=== PATIENT | female | born 1975 | race Caucasian/White ===

== ENCOUNTER 2018-01-24 17:10 | Emergency (ER) | payer OTHER ==
[~2018-01-24] VITALS: Ht 170.2 cm; Wt 102.1 kg
[2018-01-24 17:37] VITALS: BP 145/84
--- NOTE | 2018-01-24 17:50 | NUR ---
PATIENT PRESENTS TO ED WITH PT C/O BILATERAL BREAST TENDERNESS X TODAY---ADDS SHE HAD FELT A LUMP TO BOTH BREAST WHICH MAY HAVE EXPLODED BY NOW---PT IS UNABLE TO VERBALIZE IF ANY COLOR CHANGES NOTED OR DISCHARGE----PT STATING SHE DOES NOT TOUCH HERSELF , CONTRIBUTING THAT MAY BE A REASON FOR THE PAIN.----MD NOTIFIED DENIES INJURY/TRAUMA . DENIES N/V/D; SKIN IS PINK/WARM/DRY; AAOX4 WITH EVEN AND STEADY GAIT; LUNGS CLEAR BL; HR EVEN AND REGULAR; PT DENIES ANY FEVER, CP, SOB, OR COUGH AT THIS TIME; PATIENT STATES PAIN OF 5/10 AT THIS TIME; VSS; PATIENT POSITIONED FOR COMFORT; HOB ELEVATED; BEDRAILS UP X2; BED DOWN. ER MD MADE AWARE OF PT STATUS.
[2018-01-24 18:29] VITALS: BP 145/84
== END 2018-01-24 18:30 | disposition home or self-care (01) ==
LOC: MED 17:10
DX: N64.4 Mastodynia (principal)
CPT/HCPCS: 99282

== ENCOUNTER 2019-02-04 20:16 | Emergency (ER) | payer SELFPAY ==
[~2019-02-04] VITALS: Ht 175.3 cm; Wt 99.8 kg
[2019-02-04 20:24] VITALS: BP 122/59
--- NOTE | 2019-02-04 20:54 | NUR ---
PT TO ED VIA EMS FOR C/O HEADACHE. PER PT "MY HEAD HURTS AND I FEEL LIKE THE DISEASES ARE IN MY BODY" PT IS UNABLE TO RECALL MEDICAL HISTORY BUT REPORTS TAKING RISPERDAL. NO NEURO DEFECITS NOTED. PT PLACED INTO BED, PENDING MD ROLAND.
[2019-02-04 21:04] LABS: BASOPHILS % (AUTO) 0.1 % (0.0-2.0); EOSINOPHILS # (AUTO) 0.1 K/uL (0-0.4); HEMATOCRIT 34.4 % (36-48); HEMOGLOBIN 11.4 g/dL (12.0-16.0); LYMPHOCYTES % (AUTO) 26.9 % (20.5-51.1); MEAN CORPUSCULAR HEMOGLOBIN 29 pg (27-31); MEAN CORPUSCULAR HGB CONC 33 g/dL (33-37); MEAN CORPUSCULAR VOLUME 85.8 fL (80-94); MONOCYTES # (AUTO) 0.5 K/uL (0.8-1.0); MONOCYTES % (AUTO) 6.8 % (1.7-9.3); NEUTROPHILS # (AUTO) 4.7 K/uL (1.8-7.7); NEUTROPHILS % (AUTO) 64.2 % (42.2-75.2); PLATELET COUNT (AUTO) 302 K/uL (140-450); RED CELL DISTRIBUTION WIDTH 14.7 % (11.6-13.7); WHITE BLOOD COUNT (AUTO) 7.3 K/uL (4.8-10.8)
[2019-02-04 21:13] LABS: ANION GAP 7.9 (8-16); CARBON DIOXIDE 29.6 mmol/L (21-32); CHLORIDE 104 mmol/L (98-107); CREATININE 0.9 mg/dL (0.6-1.3); GFR ARICAN-AMERICAN 88 mL/min (>90); GLUCOSE 110 mg/dL (74-106); POTASSIUM 3.5 mmol/L (3.5-5.1); SODIUM SERUM 138 mmol/L (136-145); UREA NITROGEN, BLOOD 10 mg/dL (7-18)
[2019-02-04 21:19] LABS: ALBUMIN 3.3 g/dL (3.4-5.0); ASPARTATE AMINOTRANSFERASE 11 U/L (15-37); TOTAL BILIRUBIN 0.3 mg/dL (0.0-1.0)
[2019-02-04 21:26] LABS: BILIRUBIN,URINE NEGATIVE (NEGATIVE); BLOOD, URINE TRACE-I (NEGATIVE); COLOR,URINE YELLOW (YELLOW); LEUKOCYTE ESTERASE ,URINE 2+ (NEGATIVE); NITRITE, URINE NEGATIVE (NEGATIVE); PH,URINE 5.5 (5.0-9.0); UGLUCOSE NEGATIVE (NEGATIVE)
[2019-02-04 21:34] LABS: BARBITURATE, URINE NEG. ng/ml (NEG <=200); BENZODIAZEPINE, URINE NEG. ng/mL (NEG <=200); CANNABINOID, URINE NEG. ng/mL (NEG <=50); COCAINE, URINE NEG. ng/mL (NEG <=300); OPIATE, URINE NEG. ng/mL (NEG <=2000); PHENCYCLIDINE SCREEN,URINE NEG. ng/mL (NEG <=25)
[2019-02-04 21:37] LABS: APPEARANCE,URINE HAZY (CLEAR)
[2019-02-04 21:45] LABS: RBC,URINE 0-5 /HPF (0-5)
--- NOTE | 2019-02-04 21:50 | NUR ---
PT REFUSING TO LEAVE FACILITY. SECURITY CALLED TO BEDSIDE.
--- NOTE | 2019-02-04 22:02 | NUR ---
SECURITY AT BEDSIDE.
--- NOTE | 2019-02-04 22:04 | NUR ---
PT ESCORTED TO LOBBY WITH SECURITY.
[2019-02-04 22:05] VITALS: BP 114/61
--- NOTE | 2019-02-04 22:05 | NUR ---
PT PROVIDED WITH HOMELESS PACKET RESOURCES AND OFFERED BUS PASS. PT REFUSED BUS PASS.
--- NOTE | 2019-02-04 22:05 | NUR ---
Patient discharged with v/s stable. Written and verbal after care instructions given and explained. Patient verbalized understanding. Ambulatory with steady gait with information security director. All questions addressed prior to discharge. Advised to follow up with PMD.
== END 2019-02-04 22:05 | disposition home or self-care (01) ==
LOC: MED 20:16
DX: R44.0 Auditory hallucinations (principal); R51 Headache; R06.02 Shortness of breath; M79.89 Other specified soft tissue disorders; R00.2 Palpitations; E11.9 Type 2 diabetes mellitus without complications; F17.210 Nicotine dependence, cigarettes, uncomplicated; Z88.0 Allergy status to penicillin; Z88.8 Allergy status to other drugs, medicaments and biological substances; Z71.6 Tobacco abuse counseling; Z59.0 Homelessness
CPT/HCPCS: 36415; 80053; 80305; 81001; 81025; 85025; 87086; 93005; 99284; G0482

== ENCOUNTER 2019-04-08 18:46 | Emergency (ER) | payer OTHER ==
[~2019-04-08] VITALS: Ht 170.2 cm; Wt 103.5 kg
[2019-04-08 19:00] VITALS: BP 145/74
--- NOTE | 2019-04-08 19:00 | NUR ---
called pt. pt requests that she finish filling out her paperwork before being triaged.
--- NOTE | 2019-04-08 19:18 | NUR ---
PT TO ED WITH C/O LEFT TOE PAIN X 2 DAYS. DENIES INJURY OR TRAUMA. NO OBVIOUS DEFORMITY OR SWELLING NOTED. PT PLACED IN BED, PENDING MD ROLAND.
--- NOTE | 2019-04-08 19:26 | NUR ---
Dr. Drummond examining patient.
--- NOTE | 2019-04-08 19:44 | NUR ---
X-Ray at bedside.
--- NOTE | 2019-04-08 20:11 | NUR ---
SURG SHOE PLACED ON PTS LEFT FOOT. PTS PMSC WNL
[2019-04-08 20:15] VITALS: BP 145/74
--- NOTE | 2019-04-08 20:40 | NUR ---
Patient discharged with v/s stable. Written and verbal after care instructions given and explained. Patient alert, oriented and verbalized understanding of instructions. Ambulatory with steady gait. All questions addressed prior to discharge. ID band removed. Patient advised to follow up with PMD. Rx of MOTRIN given. Patient educated on indication of medication including possible reaction and side effects. Opportunity to ask questions provided and answered. Pt provided with meal upon d/c. Denies need for housing placement.
--- NOTE | 2019-04-10 09:38 | NUR ---
no working number provided to call back
== END 2019-04-08 20:40 | disposition home or self-care (01) ==
LOC: MED 18:46
DX: M79.675 Pain in left toe(s) (principal); E11.9 Type 2 diabetes mellitus without complications; Z88.0 Allergy status to penicillin; Z88.8 Allergy status to other drugs, medicaments and biological substances
CPT/HCPCS: 29125; 73660; 99283; Q0092

== ENCOUNTER 2019-04-17 23:55 | Emergency (ER) | payer OTHER ==
[~2019-04-17] VITALS: Ht 167.6 cm; Wt 88.5 kg
[2019-04-18 00:03] VITALS: BP 136/91
--- NOTE | 2019-04-18 00:03 | NUR ---
PT AMBULATED TO BED 11.
[2019-04-18] MEDS ORDERED: KETOROLAC 60 MG/2 ML VIAL IM ONE (00:45)
--- NOTE | 2019-04-18 00:48 | NUR ---
Dr. Devi examining patient.
--- NOTE | 2019-04-18 00:48 | NUR ---
PT CAME TO ER C/O OF THICKENED SKIN ON LEFT FOOT, FIFTH DIGIT. SKIN IS INTACT. PAIN LEVEL 10/10 SHARP, PAIN COMES AND GOES. ALLERGIES: PENICILLINS AND ZIPRASIDONE. MED HX: DENIES. SAFETY MEASURES IN PLACE. ERMD AT BEDSIDE.
--- NOTE | 2019-04-18 01:16 | NUR ---
Patient discharged with v/s stable. Written and verbal after care instructions given and explained. Patient verbalized understanding. Recommended pt to wear shoes with a wider toe. Homeless packet provided for pt. Ambulatory with steady gait. All questions addressed prior to discharge. Advised to follow up with PMD.
[2019-04-18 01:17] VITALS: BP 136/91
== END 2019-04-18 01:16 | disposition home or self-care (01) ==
LOC: MED 23:55
DX: M79.675 Pain in left toe(s) (principal); E11.9 Type 2 diabetes mellitus without complications; Z88.0 Allergy status to penicillin; Z88.8 Allergy status to other drugs, medicaments and biological substances
CPT/HCPCS: 96372; 99283; J1885

== ENCOUNTER 2019-04-21 17:39 | Emergency (ER) | payer OTHER ==
[~2019-04-21] VITALS: Ht 170.2 cm; Wt 106.1 kg
[2019-04-21 17:52] VITALS: BP 139/58
--- NOTE | 2019-04-21 17:57 | NUR ---
WAIT AT LOBBY
--- NOTE | 2019-04-21 19:13 | NUR ---
PT TO ER BED 12
--- NOTE | 2019-04-21 19:33 | NUR ---
C/O LEFT 5TH TOE PAIN X 1 WEEK. SITE IS BRUISED. PALPABLE PEDAL PULSE. CAP REFILL <3 SECONDS. PATIENT STATES HER SHOES ARE VERY UNCOMFORTABLE AND SHE IS REQUESTING NEW SHOES TO WALK IN. VSS. AA0X4. BED IS DOWN, LOCKED, BED RAIL X 1, ERMD TO SEE PT. MED HX: HIGH CHOLESTEROL
--- NOTE | 2019-04-21 19:37 | NUR ---
CALLED SECURITY FOR SIZE 8 SHOES
--- NOTE | 2019-04-21 19:47 | NUR ---
SECURITY BROUGHT AND GAVE PT SHOES
--- NOTE | 2019-04-21 20:01 | NUR ---
PATIENT LOOKING THROUGH HOMELESS RESOURCE PACKET, GAVE PT PHONE, [facility]
--- NOTE | 2019-04-21 20:41 | NUR ---
PT SLEEPING IN BED
--- NOTE | 2019-04-21 21:02 | NUR ---
REPORT GIVEN TO JEAN CARLOS ROD
--- NOTE | 2019-04-21 21:05 | NUR ---
DR LOMBARDI AT BEDSIDE
--- NOTE | 2019-04-21 21:55 | NUR ---
XRAY AT BEDSIDE.
[2019-04-21 22:55] VITALS: BP 140/60
--- NOTE | 2019-04-21 22:55 | NUR ---
Patient discharged with v/s stable. Written and verbal after care instructions given and explained. Patient verbalized understanding. Ambulatory with steady gait. All questions addressed prior to discharge. Advised to follow up with PMD. PT PROVIED WITH MEAL, BUS PASS, AND COMMUNITY RESOURCES.
== END 2019-04-21 22:55 | disposition home or self-care (01) ==
LOC: MED 17:39
DX: M79.605 Pain in left leg (principal); E11.9 Type 2 diabetes mellitus without complications; Z88.0 Allergy status to penicillin; Z88.8 Allergy status to other drugs, medicaments and biological substances
CPT/HCPCS: 73660; 81002; 81025; 99283; Q0092

== ENCOUNTER 2019-05-20 06:07 | Emergency (ER) | payer OTHER ==
[~2019-05-20] VITALS: Ht 170.2 cm; Wt 103.0 kg
--- NOTE | 2019-05-20 06:27 | NUR ---
PT TAKEN TO BED 3
[2019-05-20 06:36] VITALS: BP 137/61
--- NOTE | 2019-05-20 06:40 | NUR ---
ARMIDA ALVARES EVALUATING PATIENT.
[2019-05-20] MEDS ORDERED: KETOROLAC 30 MG/ML VIAL IM ONE (06:45)
--- NOTE | 2019-05-20 06:46 | NUR ---
43 Y/O FEMALE C/O PAIN ON THIRD AND FIFTH TOE ON LEFT FOOT AND THE SOLE THE RIGHT FOOT SINCE X2 DAYS AGO. PAIN IS A 4/10 ACUTE PAIN. PATIENT STATES, "IT HURTS WHEN I WALK". PATIENT IS A/OX4 AND FOLLOWS COMMANDS. PATIENT IS COOPERATIVE AND CALM. BREATH SOUNDS ARE CLEAR BILATERALLY. 1CM BLISTER NOTED ON THE RIGHT SOLE. FACIAL GRIMACING IS NOTED WHEN PATIENT MOVES HER LEFT FOOT (THIRD AND FIFTH TOES). ER MD MADE AWARE OF STATUS. SIDE RAILSX1. ALLERGIES: PENICILLIN PMH: HIGH CHOLESTEROL RX:DENIES
--- NOTE | 2019-05-20 06:58 | NUR ---
X-RAY AT BEDSIDE.
--- NOTE | 2019-05-20 06:58 | NUR ---
Mariel godoy in [facility] - 05/20/19 at 0705 by CLAUDIO ULTRASOUND AT BEDSIDE.
--- NOTE | 2019-05-20 07:05 | NUR ---
Pt report given to VIOLA VEGA. Transfer of care at this time.
--- NOTE | 2019-05-20 07:06 | NUR ---
RECEIVED REPORT FROM SOBEIDA ROD.
--- NOTE | 2019-05-20 07:33 | NUR ---
MED HX: HIGH CHOLESTEROL & SCHIZOPHRENIA MED : ALIYA MCNAMARA
--- NOTE | 2019-05-20 07:35 | NUR ---
PROVIDED FOOD FOR PT AT THIS TIME.
[2019-05-20 07:59] VITALS: BP 126/63
== END 2019-05-20 07:59 | disposition home or self-care (01) ==
LOC: MED 06:07
DX: S93.602A Unspecified sprain of left foot, initial encounter (principal); E11.9 Type 2 diabetes mellitus without complications; F17.210 Nicotine dependence, cigarettes, uncomplicated; Z98.890 Other specified postprocedural states; Z88.0 Allergy status to penicillin; Z88.8 Allergy status to other drugs, medicaments and biological substances; Y93.89 Activity, other specified; Y99.8 Other external cause status
CPT/HCPCS: 73630; 96372; 99283; J1885; Q0092

== ENCOUNTER 2019-05-29 04:40 | Emergency (ER) | payer OTHER ==
[~2019-05-29] VITALS: Ht 160 cm; Wt 117.9 kg
[2019-05-29 04:40] VITALS: BP 100/52
[2019-05-29 04:58] VITALS: BP 100/52
== END 2019-05-29 05:35 | disposition home or self-care (01) ==
LOC: MED 04:40
DX: R10.10 Upper abdominal pain, unspecified (principal); F25.9 Schizoaffective disorder, unspecified; E11.9 Type 2 diabetes mellitus without complications; E78.00 Pure hypercholesterolemia, unspecified; Z88.0 Allergy status to penicillin; Z88.8 Allergy status to other drugs, medicaments and biological substances
CPT/HCPCS: 81002; 81025; 99283

== ENCOUNTER 2019-08-27 02:03 | Emergency (ER) | payer OTHER ==
[~2019-08-27] VITALS: Ht 170.2 cm; Wt 105.2 kg
[2019-08-27 02:03] VITALS: BP 100/34
--- NOTE | 2019-08-27 02:03 | NUR ---
PT BIBA BLS. TAKEN TO BED 9
--- NOTE | 2019-08-27 02:18 | NUR ---
44 Y/O FEMALE BIBA. PT HOMELESS, CURRENTLY LIVING IN [facility]. PRESENTS TO ED, C/O NEAR SYNCOPAL EPISODE. PT STATES HAVING DECREASED FOOD INTAKE FOR THE PAST WEEK. PT DENIES ANY HEAD TRAUMA. C/O DIZZINESS. UNSTEADY GAIT. ERMD AWARE. WILL CONTINUE TO MONITOR.
[2019-08-27] MEDS ORDERED: NACL 0.9% 1,000 ML IV ONE (02:35)
[2019-08-27 03:00] LABS: BASOPHILS % (AUTO) 0.3 % (0.0-2.0); EOSINOPHILS # (AUTO) 0.1 K/uL (0-0.4); HEMATOCRIT 40.7 % (36-48); HEMOGLOBIN 13.5 g/dL (12.0-16.0); LYMPHOCYTES # (AUTO) 1.5 K/uL (2.5-16.5); LYMPHOCYTES % (AUTO) 14.8 % (20.5-51.1); MEAN CORPUSCULAR HEMOGLOBIN 30 pg (27-31); MEAN CORPUSCULAR HGB CONC 33 g/dL (33-37); MEAN CORPUSCULAR VOLUME 89.5 fL (80-94); MONOCYTES # (AUTO) 0.4 K/uL (0.8-1.0); MONOCYTES % (AUTO) 4.2 % (1.7-9.3); NEUTROPHILS # (AUTO) 8.1 K/uL (1.8-7.7); NEUTROPHILS % (AUTO) 79.7 % (42.2-75.2); PLATELET COUNT (AUTO) 323 K/uL (140-450); RED BLOOD CELL COUNT(AUTO) 4.55 MIL/uL (4.20-5.40); RED CELL DISTRIBUTION WIDTH 14.7 % (11.6-13.7); WHITE BLOOD COUNT (AUTO) 10.1 K/uL (4.8-10.8)
[2019-08-27 03:22] LABS: POTASSIUM 3.7 mmol/L (3.5-5.1)
[2019-08-27 03:23] LABS: ANION GAP 11.9 (8-16); CARBON DIOXIDE 27.8 mmol/L (21-32); CREATININE 0.9 mg/dL (0.6-1.3)
[2019-08-27 04:50] VITALS: BP 100/34
--- NOTE | 2019-08-27 04:50 | NUR ---
PT DISCHARGED WITH PAPERWORK. EDUCATED PT REGARDING D/C DIAGNOSIS AND INSTRUCTIONS. PT VERBALIZED UNDERSTANDING OF TEACHING. TOLD PT TO FOLLOW UP WITH PCP AND WHEN TO RETURN TO ED. PT AT STABLE CONDITION. ALL QUESTIONS ANSWERED.
== END 2019-08-27 04:50 | disposition home or self-care (01) ==
LOC: MED 02:03
DX: R42 Dizziness and giddiness (principal); E11.9 Type 2 diabetes mellitus without complications; F20.9 Schizophrenia, unspecified; F17.200 Nicotine dependence, unspecified, uncomplicated; Z88.0 Allergy status to penicillin; Z88.8 Allergy status to other drugs, medicaments and biological substances
CPT/HCPCS: 36415; 70450; 80048; 81025; 85025; 93005; 96360; 96361; 99284

== ENCOUNTER 2020-07-18 17:46 | Emergency (ER) | payer OTHER, MEDICAID ==
[~2020-07-18] VITALS: Ht 170.2 cm; Wt 102.1 kg
[2020-07-18 17:56] VITALS: BP 118/98
--- NOTE | 2020-07-18 18:32 | NUR ---
45 Y/O FEMALE NI, FROM HOME PRESENTS TO ED C/C RIGHT FOOT PAIN AND COUGH X2 MONTHS. PT STES THE VOICES TOLD HER TO COME IN TO ED. DENIES TAKING ANY OTC MEDS. ON ABILIFY FOR BIPOLAR. EMT REPORTED TEMP 101.4, ON ADMISSION TEMP TAKEN 99.0. PT STATES HER COGH IS PRODUCTIVE WITH CLEAR SPUTUM.LUNGS CLEAR ON AUSCULTATION, NO SOB, NO SIGHNS OF RESP DISTRESS NOTED. BOTTOM OF RIGHT FOOT IS SWOLLEN AND PAINFUL TO TOUCH. NO REDNESS NOTED, DENIES TRAUMA TO FOOT, STATES SHE IS UNABLE TO AMBULATE DUE TO PAIN. PT POSITIONED FOR COMFORT, BED LOCKED AND IN LOWEST POSITION. PMH: BIPOLAR, HYPERLIPIDEMIA ALLERGIES: PENICILLINS, ZIPRASIDONE
[2020-07-18] MEDS ORDERED: OLANZapine 5 MG TAB PO STA (19:13)
--- NOTE | 2020-07-18 19:16 | NUR ---
PT STABLE AT THIS TIME. REPORT GIVEN TO BRETT ROD FOR CONTINUITY OF CARE.
[2020-07-18 20:47] VITALS: BP 118/98
--- NOTE | 2020-07-18 20:54 | NUR ---
Patient discharged with v/s stable. Written and verbal after care instructions given and explained. Patient verbalized understanding. Ambulatory with steady gait. All questions addressed prior to discharge. Advised to follow up with PMD.
--- NOTE | 2020-07-21 15:47 | NUR ---
Negative covid result received from lab
== END 2020-07-18 20:54 | disposition home or self-care (01) ==
LOC: MED 17:46
DX: M79.671 Pain in right foot (principal); F29 Unspecified psychosis not due to a substance or known physiological condition; Z20.828 Contact with and (suspected) exposure to other viral communicable diseases
CPT/HCPCS: 99283; U0003

== ENCOUNTER 2024-03-09 12:20 | Emergency (ER) | payer OTHER ==
[~2024-03-09] VITALS: Ht 170.2 cm; Wt 114.3 kg
[2024-03-09 12:30] VITALS: BP 107/53; PULSE 74; RESP 18; TEMP 98.1; O2SAT 100
[2024-03-09] MEDS ORDERED: LIDOCAINE 5% 1 EA PATCH TP ONE (15:00)
[2024-03-09] MEDS: LIDOCAINE MPF 1% 10 MG/ML VIAL INJ ONE (15:52)
[2024-03-09] MEDS ORDERED: BACI-418 TP (16:01)
[2024-03-09] MEDS ORDERED: ACET-2619 PO (16:01)
[2024-03-09] MEDS: ACETAMINOPHEN EXTRA STRENGTH 500 MG TAB PO ONE (16:14)
[2024-03-09] MEDS: BACITRACIN OINT 500 UNITS/GM PKT TP ONE (16:14)
[2024-03-09 16:20] VITALS: BP 110/54; PULSE 70; RESP 16; TEMP 98; O2SAT 98
== END 2024-03-09 16:20 | disposition home or self-care (01) ==
LOC: MED 12:20
DX: M79.81 Nontraumatic hematoma of soft tissue (principal); J45.909 Unspecified asthma, uncomplicated; Z98.890 Other specified postprocedural states; Z79.899 Other long term (current) drug therapy
CPT/HCPCS: 10140; 76881; 99284; J2001; Q0092